=== PATIENT | male | born 1980 | race Two or more races ===

== ENCOUNTER 2025-02-06 07:49 | Emergency (ER) | payer OTHER ==
[~2025-02-06] VITALS: Ht 167.6 cm; Wt 97.5 kg
[2025-02-06 08:08] VITALS: BP 109/78; O2SAT 98
[2025-02-06] MEDS ORDERED: HYSINGLA ER20 MG (08:51)
[2025-02-06] MEDS ORDERED: MICARDIS20 MG PO (08:51)
[2025-02-06] MEDS ORDERED: ZYLOPRIM100 M1 (08:52)
[2025-02-06] MEDS ORDERED: ATORVALIQ20 MG/5 ML (08:52)
[2025-02-06] MEDS ORDERED: PANTOPRAZOLE SO20 MG (08:52)
[2025-02-06] MEDS ORDERED: ORPHENADRINE CITRATE 30 MG/ML AMPUL IM ONE (12:45)
[2025-02-06] MEDS ORDERED: DEXAMETHASONE SODIUM PHOSPHATE 4 MG/ML VIAL IM ONE (12:45)
[2025-02-06] MEDS ORDERED: KETOROLAC TROMETHAMINE 60 MG VIAL IM ONE (12:45)
[2025-02-06] MEDS ORDERED: BACLOFEN10 MG PO (12:46)
[2025-02-06] MEDS ORDERED: DICLOFENAC SODI75 MG PO (12:46)
== END 2025-02-06 13:13 | disposition home or self-care (01) ==
LOC: ER 07:49
DX: S13.4XXA Sprain of ligaments of cervical spine, initial encounter (principal); V49.9XXA Car occupant (driver) (passenger) injured in unspecified traffic accident, initial encounter; Y93.89 Activity, other specified; Y92.413 State road as the place of occurrence of the external cause; Y99.9 Unspecified external cause status; M62.838 Other muscle spasm; I10 Essential (primary) hypertension